=== PATIENT | female | born 1985 ===

== ENCOUNTER 2022-09-14 06:42 | Day surgery (SDC) | payer OTHER ==
[~2022-09-14] VITALS: Ht 172.7 cm; Wt 119.3 kg
[~2022-09-14 06:42] MED LIST: LOSARTAN-HCTZ1 EAC2 PO; METOPROLOL SUCC50 MG PO; NORVASC2.5 MG PO
[2022-09-14] MEDS ORDERED: IBU800 MG PO (10:23)
[2022-09-14] MEDS ORDERED: NEURONTIN300 MG PO (10:25)
== END 2022-09-14 13:15 | disposition home or self-care (01) ==
LOC: CIR.AMB 06:42
PROVIDERS: ATTEND Obstetrics & Gynecology Gynecology
DX: Z30.2 Encounter for sterilization (principal); N70.11 Chronic salpingitis; I10 Essential (primary) hypertension; E03.9 Hypothyroidism, unspecified